=== PATIENT | male | born 1930 | race Two or more races ===

== ENCOUNTER 2018-06-01 07:03 | Outpatient (CLI) | payer OTHER ==
[~2018-06-01 07:03] MED LIST: ASPIR 8181 MG; DIGOXIN0.125 MG/2; SMZ-TMP DS 800-1 TAB PO; TOPROL XL25 M1
== END 2018-06-01 07:09 | disposition home or self-care (01) ==
LOC: RAD 07:03
DX: I10 Essential (primary) hypertension (principal)

== ENCOUNTER 2018-07-01 09:52 | Outpatient (CLI) | payer OTHER | END 2018-07-01 10:00 | disposition home or self-care (01) | LOC: SONOGRAMA 09:52 | DX: N13.39 Other hydronephrosis (principal) ==

== ENCOUNTER 2018-07-01 10:56 | Outpatient (CLI) | payer OTHER | END 2018-07-01 10:57 | disposition home or self-care (01) | LOC: LAB 10:56 | DX: N39.0 Urinary tract infection, site not specified (principal) ==